=== PATIENT | male | born 1990 | race Caucasian/White ===

== ENCOUNTER 2016-06-13 10:45 | Emergency (ER) | payer SELFPAY ==
[2016-06-13] MEDS ORDERED: Lidocaine Viscous Sol 2% 15 ml UD Cup ONE (11:18)
[2016-06-13] MEDS ORDERED: Mag-Al Plus 1200 MG/1200 MG/120 MG/30 ML UDCUP ONE (11:18)
[2016-06-13] MEDS ORDERED: Azithromycin 250 MG TAB ONE (11:19)
--- NOTE | 2016-06-13 12:50 | RAD ---
PORTABLE CHEST: Date: 06/13/16 PROVIDED CLINICAL HISTORY: Cough. FINDINGS: Cardiac silhouette appears prominent, likely at least partially on the basis of portable technique. No focal consolidation, pleural fluid, or pneumothorax apparent. IMPRESSION: No evidence for an acute cardiopulmonary process. POS: [facility]
== END 2016-06-13 11:30 | disposition home or self-care (01) ==
LOC: MADERS 10:45
DX: J20.9 Acute bronchitis, unspecified (principal); K21.9 Gastro-esophageal reflux disease without esophagitis; F17.210 Nicotine dependence, cigarettes, uncomplicated
CPT/HCPCS: 71010

== ENCOUNTER 2017-04-13 12:32 | Emergency (ER) | payer SELFPAY ==
--- NOTE | 2017-04-13 13:36 | RAD ---
CHEST ONE VIEW: HISTORY: Cough. COMPARISON: None. FINDINGS: Portable single view chest demonstrates a normal cardiac silhouette. Pulmonary vessels and hilum are normal. No mass. No consolidation. No pneumothorax or osseous abnormalities. IMPRESSION: No acute cardiopulmonary process. POS: [facility]
== END 2017-04-13 13:44 | disposition home or self-care (01) ==
LOC: MADERS 12:32
DX: J45.909 Unspecified asthma, uncomplicated (principal); F17.210 Nicotine dependence, cigarettes, uncomplicated
CPT/HCPCS: 71045

== ENCOUNTER 2017-07-13 07:38 | Emergency (ER) | payer SELFPAY | END 2017-07-13 08:15 | disposition home or self-care (01) | LOC: MADERS 07:38 | DX: S39.011A Strain of muscle, fascia and tendon of abdomen, initial encounter (principal); F17.210 Nicotine dependence, cigarettes, uncomplicated; X50.1XXA Overexertion from prolonged static or awkward postures, initial encounter | CPT/HCPCS: 99283 ==

== ENCOUNTER 2019-03-05 02:43 | Emergency (ER) | payer SELFPAY ==
[2019-03-05 03:17] LABS: Hemoglobin 14.7 g/dL (14.0-18.0); Mean Corpuscular HGB CONC 31.8 g/dL (32.0-36.0); Mean Corpuscular Hemoglobin 31.3 pg (27.0-31.0); Mean Corpuscular Volume 98.4 fL (78.0-98.0); Mean Platelet Volume 6.8 fL (7.4-10.4); Platelet Count 241 thou/uL (130-400); RBC Distribution Width 11.9 % (11.5-14.5); White Blood Cell (WBC) Count 7.6 thou/uL (4.8-10.8)
[2019-03-05] MEDS ORDERED: Sodium Chloride 0.9% 1,000 ML ONE (03:18)
[2019-03-05] MEDS ORDERED: Pantoprazole 40 MG VIAL ONE (03:18)
[2019-03-05 03:22] LABS: ALT (SGPT) 14 U/L (8-55); AST (SGOT) 16 U/L (5-34); Albumin 4.3 g/dL (3.5-5.0); Alkaline Phosphatase 84 U/L (40-110); Anion Gap 12 mmol/L (10-20); BUN (Urea Nitrogen) 12 mg/dL (8.9-20.6); Bilirubin, Total 0.4 mg/dL (0.2-1.2); Calc. Creatinine Clearance 0 mL/min (70-130); Calcium 9.5 mg/dL (7.8-10.44); Carbon Dioxide 22 mmol/L (22-29); Chloride 108 mmol/L (98-107); Estimated GFR-MDRD Greater than 90; Globulin 2.9 g/dL (2.4-3.5); Glucose 132 mg/dL (70-105); Lipase 29 U/L (8-78); Potassium 3.4 mmol/L (3.5-5.1); Protein, Total 7.2 g/dL (6.0-8.3); Sodium 139 mmol/L (136-145)
[2019-03-05] MEDS ORDERED: Morphine 4 MG/ML VIAL ONE (03:29)
[2019-03-05 03:37] LABS: Band 2 % (5-11); Eosinophils 2 % (0-10); INR-International Normal Ratio 0.9; Lymphocytes 15 % (21-51); MDiff Complete? YES; Monocytes 11 % (0-10); Neutrophil 68 % (42-75); PTT 30.4 SEC (22.9-36.1); Platelet Morphology Comment Appears Adequate; Prothrombin Time 12.5 SEC (12.0-14.7); RBC Morphology Normal; Reactive Lymphocytes 2 % (0-10)
[2019-03-05] MEDS ORDERED: Potassium Chloride 20 MEQ TAB ONE (04:52)
[2019-03-05] MEDS ORDERED: Levofloxacin 500 mg/D5W 100 ml Premix Bag ONE (04:52)
--- NOTE | 2019-03-05 08:54 | CT ---
PRELIMINARY REPORT/[facility]/EMERGENCY AFTER HOURS PROCEDURE: This report was discussed with Jose Eduardo Santos RN by Gianna Pepe on Mar 05, 2019 04:36:00 PNEUMATIC PRESS HAND. Addendum electronically signed by Gianna Pepe on March 05, 2019 4:37:[address] ABDOMEN PELVIS W CON History: Patient with severe epigastric pain for last 24 hours; h/o pud Comparison: None Findings: Lung bases are clear. Cardiac size within normal limits. Abdominal aorta is normal in caliber. Gallbladder is distended. There is suggestion of pericholecystic fluid. Possible punctate gallstone at the base of the gallbladder (image 58). No significant biliary ductal dilatation. Liver is otherwise unremarkable. The spleen, pancreas and bilateral adrenal glands are within normal limits. Kidneys enhance symmetrically. No hydronephrosis. Urinary bladder is unremarkable. Prostate not enlarged. No free air or free fluid. No evidence of small bowel obstruction. Appendix is normal in caliber and is not inflammatory. There is wall thickening of the ascending colon. The level of the hepatic flexure. There is also mi ld wall prominence of the descending and sigmoid colon. No evidence of acute diverticulitis. Osseous structures are intact. Impression: 1. Distended gallbladder with cholelithiasis and pericholecystic fluid. Cholecystitis cannot be exc luded in the appropriate clinical setting. Consider ultrasound for further characterization. 2. No evidence of acute appendicitis, bowel obstruction or free air. There is wall thickening of th e colon, most pronounced in the ascending colon to the level of the hepatic flexure. Minimal involve ment of the descending and sigmoid colon also suspected. Correlate for colitis. 3. Additional findings, as above. ELECTRONICALLY SIGNED BY: Fletcher Granger DO Mar 05, 2019 4:33:06 AM PNEUMATIC PRESS HAND This report is intended for review by the ordering physician only, in accordance of law. If you recei ve this report in error, please call [facility] at [phone]. FINAL REPORT EMERGENCY AFTER HOURS ABDOMEN AND PELVIC CT SCAN WITH IV CONTRAST: DATE: 03/05/19 TIME: 0356 hours IMPRESSION: Distended gallbladder with pericholecystic fluid and a gallstone, correlate with ultrasound for possi ble acute cholecystitis. Minimal wall thickening, primarily of the right colon. This report is in agreement with preliminary report by [facility]. POS: [facility]
[2019-03-05] MEDS ORDERED: Iopamidol 370 76% 100 ML VIAL ONE (10:40)
== END 2019-03-05 05:10 | disposition short-term general hospital (02) ==
LOC: MADERS 02:43
DX: K80.10 Calculus of gallbladder with chronic cholecystitis without obstruction (principal); E87.6 Hypokalemia; F17.210 Nicotine dependence, cigarettes, uncomplicated
CPT/HCPCS: 74177; 80053; 82274; 83690; 85007; 85027; 85610; 85730; 96361; 96374; 96375; C9113; J1956; J2270; J7050; Q9967

== ENCOUNTER 2019-10-09 21:13 | Emergency (ER) | payer SELFPAY ==
[~2019-10-09 21:13] MED LIST: Iopamidol 370 76% 100 ML VIAL ONE
[2019-10-09] MEDS ORDERED: Ketorolac Tromethamine 30 MG/ML VIAL ONE (21:44)
[2019-10-09 22:08] LABS: #Basophils 0.1 thou/uL (0.0-0.2); #Eosinphils 0.1 thou/uL (0.0-0.7); #Monocytes 0.5 thou/uL (0.11-0.59); #Neutrophils 3.6 thou/uL (1.40-6.50); %Eosinophils 1.6 % (0.0-10.0); %Lymphocytes 31.5 % (21.0-51.0); %Monocytes 8.3 % (0.0-10.0); %Neutrophils 57.6 % (42.0-75.0); Mean Platelet Volume 6.7 fL (7.4-10.4); Platelet Count 268 thou/uL (130-400); RBC Distribution Width 11.9 % (11.5-14.5); Red Blood Cell (RBC) Count 4.82 mill/uL (4.70-6.10); White Blood Cell (WBC) Count 6.2 thou/uL (4.8-10.8)
[2019-10-09 22:23] LABS: ALT (SGPT) 43 U/L (8-55); AST (SGOT) 52 U/L (5-34); Albumin 4.8 g/dL (3.5-5.0); Alkaline Phosphatase 84 U/L (40-110); Anion Gap 14 mmol/L (10-20); BUN (Urea Nitrogen) 19 mg/dL (8.9-20.6); Bilirubin, Total 0.4 mg/dL (0.2-1.2); Calc. Creatinine Clearance 0 mL/min (70-130); Calcium 9.3 mg/dL (7.8-10.44); Carbon Dioxide 25 mmol/L (22-29); Chloride 105 mmol/L (98-107); Estimated GFR-MDRD 84; Globulin 2.9 g/dL (2.4-3.5); Glucose 93 mg/dL (70-105); Lipase 26 U/L (8-78); Potassium 3.9 mmol/L (3.5-5.1); Protein, Total 7.7 g/dL (6.0-8.3); Sodium 140 mmol/L (136-145)
[2019-10-09] MEDS ORDERED: Sodium Chloride 0.9% 1,000 ML ONE (22:41)
[2019-10-09 23:24] LABS: Bilirubin Negative (Negative); Blood, Urine Negative (Negative); Clarity Clear (Clear); Glucose, Urine (Dipstick) Negative (Negative); Ketone, Urine Negative (Negative); Leukocyte Negative (Negative); Nitrite Negative (Negative); Protein, Urine (Dipstick) Trace mg/dL (Neg-Trace); Urobilinogen 0.2 mg/dL (Less than 2); pH, Urine 7.5 (5.0-9.0)
--- NOTE | 2019-10-09 23:58 | CT ---
CT ABDOMEN AND PELVIS WITH IV CONTRAST 10/09/2019 CLINICAL INFORMATION: Right upper abdominal pain. COMPARISON: 03/05/2019 Technique: Multiple contiguous axial CT images are obtained through the abdomen and pelvis with IV contrast. Cor onal reformatted images are provided. FINDINGS: Lower Chest: Minimal bibasilar atelectasis is present. Vessels: Abdominal aorta is normal in caliber. Abdomen: Portal vein:Patent Gallbladder: Surgically absent which is an interval change. Liver: within normal limits. Spleen: within normal limits. Pancreas: within normal limits. Adrenals: within normal limits. Kidneys: within normal limits. Bowel: Normal caliber. Appendix: The appendix is visualized and normal in caliber. Peritoneum: No ascites or free air; no fluid collection. Mesentery and Retroperitoneum: No enlarged mesenteric or retroperitoneal lymph nodes. Abdominal Wall: Tiny fat-containing umbilical hernia. Pelvis: Reproductive Organs: No pelvic masses. Pelvis within normal limits. Bladder: within normal limits. Bones: No suspicious lytic or sclerotic osseous lesions are identified. IMPRESSION: No acute findings in the abdomen or pelvis.
== END 2019-10-10 00:15 ==
LOC: MADERS 21:13
DX: R10.11 Right upper quadrant pain (principal); F17.210 Nicotine dependence, cigarettes, uncomplicated
CPT/HCPCS: 74177; 80053; 81003; 83690; 85025; 86140; 96374; J1885; J7050; Q9967

== ENCOUNTER 2023-01-05 12:42 | Emergency (ER) | payer SELFPAY ==
[2023-01-05] MEDS ORDERED: Fluorescein Opthalmic Strip ONE (12:48)
[2023-01-05] MEDS ORDERED: Tetracaine 0.5% PF 4 ML BOT ONE (12:48)
== END 2023-01-05 13:11 | disposition home or self-care (01) ==
LOC: MADERS 12:42
DX: T15.12XA Foreign body in conjunctival sac, left eye, initial encounter (principal); F17.210 Nicotine dependence, cigarettes, uncomplicated; W44.8XXA Other foreign body entering into or through a natural orifice, initial encounter; Y93.89 Activity, other specified; Y92.009 Unspecified place in unspecified non-institutional (private) residence as the place of occurrence of the external cause
CPT/HCPCS: 65210

== ENCOUNTER 2023-03-19 00:35 | Emergency (ER) | payer SELFPAY ==
[2023-03-19] MEDS ORDERED: Ketorolac Tromethamine 30 MG (1 mL) VIAL ONE (01:00)
[2023-03-19] MEDS ORDERED: Orphenadrine Citrate 60 MG/2 ML VIAL ONE (01:00)
== END 2023-03-19 01:21 | disposition home or self-care (01) ==
LOC: MADERS 00:35
DX: M25.512 Pain in left shoulder (principal); G89.29 Other chronic pain; X50.0XXA Overexertion from strenuous movement or load, initial encounter; Y93.F2 Activity, caregiving, lifting; Y92.69 Other specified industrial and construction area as the place of occurrence of the external cause
CPT/HCPCS: 96372; 99283; J1885; J2360